=== PATIENT | female | born 1970 | race Caucasian/White ===

== ENCOUNTER 2017-09-07 18:30 | Emergency (ER) | payer OTHER ==
[~2017-09-07] VITALS: Ht 162.6 cm; Wt 115.7 kg
--- OUTSIDE RECORDS SUMMARY | 2017-09-07 18:36 | External Medical Summary Rpt | CCD ---
Author Author , JOESPH PINK Address Unknown Phone [email or web address] Purpose Continuity of Care Document - through 2016
--- OUTSIDE RECORDS SUMMARY | 2017-09-07 18:36 | External Medical Summary Rpt | CCD ---
Author Author , JOESPH PINK Address Unknown Phone [email or web address] Purpose Continuity of Care Document - through 2016
--- OUTSIDE RECORDS SUMMARY | 2017-09-07 18:36 | External Medical Summary Rpt | CCD ---
Author Author , JOESPH PINK Address Unknown Phone Purpose Continuity of Care Document - 04-17-2017 through 2016
--- OUTSIDE RECORDS SUMMARY | 2017-09-07 18:37 | External Medical Summary Rpt ---
Author Author [employer], [employer] [employer] Organization [employer] Address Unknown Phone Unavailable Results Comprehensive metabolic 2000 panel in Serum or Plasma Observa Value Referen Units Interpr Notes Date tion ce etation Range Albumin/G 1.1 - 1.8 No Low No April 17 lobulin informati informati 2016 7:57 [Mass on in on in AM ratio] in source source Serum or data data Plasma Albumin 3.4 - 5.0 gm/dL Normal No April 17 [Mass/vol informati 2016 7:57 ume] in on in AM Serum or source Plasma data Alkaline 46 - 116 U/L Normal No April 17 phosphata informati 2016 7:57 se on in AM [Enzymati source c data activity/ volume] in Serum or Plasma Bilirubin 0.2 - 1.0 mg/dL Normal No April 17 .total informati 2016 7:57 [Mass/vol on in AM ume] in source Serum or data Plasma Urea 7 - 18 mg/dL Normal No April 17 nitrogen informati 2016 7:57 [Mass/vol on in AM ume] in source Serum or data Plasma Calcium 8.5 - mg/dL Normal No April 17 [Mass/vol 10.1 informati 2016 7:57 ume] in on in AM Serum or source Plasma data Chloride 98 - 107 mmoL/L Normal No April 17 [Moles/vo informati 2016 7:57 lume] in on in AM Serum or source Plasma data Carbon 21.0 - mmoL/L Normal No April 17 dioxide, 32.0 informati 2016 7:57 total on in AM [Moles/vo source lume] in data Serum or Plasma Creatinin 0.55 - mg/dL Normal No April 17 e 1.02 informati 2016 7:57 [Mass/vol on in AM ume] in source Serum or data Plasma Estimated 59- ML/MIN No REFERENCE April 17 informati RANGE: 2017 7:57 glomerula on in >60 AM r source ML/MIN/1. filtratio data 73 SQUARE n rate METERSIf (GF this patient is -A merican, then multiply theresult by 1.210. Globulin 1.3 - 3.2 gm/dL High No April 17 [Mass/vol informati 2016 7:57 ume] in on in AM Serum source data Glucose 74 - 106 mg/dL Normal No April 17 [Mass/vol informati 2016 7:57 ume] in on in AM Serum or source Plasma data Potassium 3.5 - 5.1 mmoL/L Normal No April 17 informati 2016 7:57 [Moles/vo on in AM lume] in source Serum or data Plasma Sodium 136 - 145 mmoL/L Normal No April 17 [Moles/vo informati 2016 7:57 lume] in on in AM Serum or source Plasma data Aspartate 15 - 37 U/L Normal No April 17 informati 2016 7:57 aminotran on in AM sferase source [Enzymati data c activity/ volume] in Serum or Plasma Alanine 12 - 78 U/L Normal No April 17 aminotran informati 2016 7:57 sferase on in AM [Enzymati source c data activity/ volume] in Serum or Plasma Protein 6.4 - 8.2 gm/dL Normal No April 17 [Mass/vol informati 2016 7:57 ume] in on in AM Serum or source Plasma data Lipid 1996 panel in Serum or Plasma Observa Value Referen Units Interpr Notes Date tion ce etation Range Cholester < 200 mg/dL No No April 17 ol informati informati 2016 7:57 [Moles/vo on in on in AM lume] in source source Unspecifi data data ed specimen Cholester 40 - 60 MG/DL Normal No April 17 ol in HDL informati 2016 7:57 on in AM [Mass/vol source ume] in data Serum or Plasma Cholester 0 - 130 mg/dL Normal No April 17 ol in LDL informati 2016 7:57 on in AM [Mass/vol source ume] in data Serum or Plasma by daily on Triglycer 30 - 200 mg/dL Normal No April 17 madan informati 2016 7:57 [Moles/vo on in AM lume] in source Serum or data Plasma Cholester 0 - 40 No Normal No April 17 ol in informati informati 2016 7:57 VLDL on in on in AM [Mass/vol source source ume] in data data Serum or Plasma Thyrotropin [Units/volume] in Serum or Plasma Observa Value Referen Units Interpr Notes Date tion ce etation Range Thyrotrop 0.358 - uIU/ml Normal No April 17 in 3.740 informati 2016 7:57 [Units/vo on in AM lume] in source Serum or data Plasma CBC W Auto Differential panel in Blood Observa Value Referen Units Interpr Notes Date tion ce etation Range Basophils 0 - 0.2 K/MM3 Normal No April 17 informati 2016 7:57 [#/volume on in AM ] in source Blood by data Automated count Basophils 0.1 - 2.0 % Normal No April 17 / informati 2016 7:57 leukocyte on in AM s in source Blood by data Automated count Eosinophi 0.0 - 0.4 K/mm3 Normal No April 17 ls informati 2016 7:57 [#/volume on in AM ] in source Blood by data Automated count Eosinophi 0.1 - % Normal No April 17 ls/100 12.0 informati 2016 7:57 leukocyte on in AM s in source Blood by data Automated count Granulocy 1.8 - 7.8 K/mm3 Normal No April 17 ventura informati 2016 7:57 [#/volume on in AM ] in source Blood by data Automated count Granulocy 37.0 - % Normal No April 17 ventura/100 80.0 informati 2016 7:57 leukocyte on in AM s in source Blood by data Automated count Hematocri 37.0 - % Normal No April 17 t [Volume 47.0 informati 2016 7:57 on in AM Fraction] source of Blood data Hemoglobi 12.2 - g/dL Normal No April 17 n 16.2 informati 2016 7:57 [Mass/vol on in AM ume] in source Blood data Lymphocyt 0.7 - 4.5 K/mm3 Normal No April 17 es informati 2016 7:57 [#/volume on in AM ] in source Unspecifi data ed specimen by Automated count Lymphocyt 10 - 50.0 % Normal No April 17 es informati 2016 7:57 [#/volume on in AM ] in source Unspecifi data ed specimen by Automated count Erythrocy 27 - 31.2 pg Normal No April 17 te mean informati 2016 7:57 corpuscul on in AM ar source hemoglobi data n [Entitic mass] Erythrocy 31.8 - g/dl Normal No April 17 te mean 35.4 informati 2016 7:57 corpuscul on in AM ar source hemoglobi data n concentra tion [Mass/vol ume] by Automated count Erythrocy 82.2 - fl Normal No April 17 te mean 97.8 informati 2016 7:57 corpuscul on in AM ar volume source [Entitic data volume] by Automated count Monocytes 0.1 - 1.0 K/mm3 Normal No April 17 informati 2016 7:57 [#/volume on in AM ] in source Blood by data Automated count Monocytes 1.7 - 9.3 % Normal No April 17 / informati 2016 7:57 leukocyte on in AM s in source Blood by data Automated count Platelet 7.4 - fl Low No April 17 mean 10.4 informati 2016 7:57 volume on in AM [Entitic source volume] data in Blood by Automated count Platelets 142 - 424 K/mm3 Normal No April 17 informati 2016 7:57 [#/volume on in AM ] in source Blood data Erythrocy 4.2 - 5.4 M/mm3 Normal No April 17 ventura informati 2016 7:57 [#/volume on in AM ] in source Amniotic data fluid Erythrocy 11.5 - % Normal No April 17 te 17.5 informati 2016 7:57 distribut on in AM ion width source [Entitic data volume] by Automated count Leukocyte 4.8 - K/MM3 Normal No April 17 s 10.8 informati 2016 7:57 [#/volume on in AM ] in source Blood data
--- OUTSIDE RECORDS SUMMARY | 2017-09-07 18:37 | External Medical Summary Rpt | CCD ---
Demographics Preferred Language Tamazight Marital Status Unknown Anabaptist Affiliation Unknown Race Unknown Ethnic Group Unknown Author Author , JOESPH PINK Address Unknown Phone Immunization Unable to retrieve immunization data due to connection failure with Immunization Registry. Please try again later.
--- OUTSIDE RECORDS SUMMARY | 2017-09-07 18:37 | External Medical Summary Rpt ---
Author Author RONN[employer]TY [employer], [facility] [employer] Organization [employer] Address Unknown Phone Unavailable [...]
--- OUTSIDE RECORDS SUMMARY | 2017-09-07 18:37 | External Medical Summary Rpt | CCD ---
Demographics Preferred Language Kiswahili Marital Status Unknown Mormon Affiliation Unknown Race Unknown Ethnic Group Unknown Author Author , JOESPH PINK Address Unknown Phone Immunization Unable to retrieve immunization data due to connection failure with Immunization Registry. Please try again later.
--- NOTE | 2017-09-07 18:49 | Urgent Treatment Center Report ---
History of Present Issue Date/Time Seen by Provider 09/07/178 Visit Reason Pt arrived: Presenting Problem: Location if Accident: Onset of symptoms date/time:/ or onset unknown for: Have you (or family members/close friends) recently traveled outside the [place]? If Yes, where/when: Have you had exposure to infectious disease within the past month? TB? Other? Specify: Source patient, RN notes reviewed, family Exam Limitations no limitations Comment Patient has had intermittent recurring rash for several weeks. It was initially on her hands and arms, but would resolve spontaneously and then recur a day or two later. She thought this was initially related to an allergic response as she used to get allergy shots. The rash isn't itchy or painful. Starts as smaller scattered flat red spots and then turns into a more diffuse/confluent pinkish rash. Rash in now on her legs and started today on her face. States she got her flu shot 8-9 days ago. The next day she felt very tired and has felt tired for a few weeks. She had a sore throat but it is better. Has had fever for several days now. It also seems to come and go. Her muscles hurt. Her ear was popping and "had a heartbeat" this am but not painful. No sinus pain or pressure. Minimum cough. No vomiting or diarrhea. No new medications. No recent antibiotics. ALLERGIES Coded Allergies: No Known Allergies (09/07/17) History Medical History General Seizures? No Diabetes? No Hepatitis? No TB? No Surgical Hx Previous Surgery?Y D & C Review of Systems All Other Systems Reviewed and Negative Constitutional chills, fever, malaise ENT throat pain. Skin rash Physical Exam Vital Signs Vital Signs Date Time Temp Pulse Resp B/P Pulse O2 O2 Flow FiO2 Ox Delivery Rate 09/07 1849 99.9 113 22 143/95 97 General Appearance normal appearance, no apparent distress Ear, Nose, Throat hearing grossly normal, normal ENT inspection Respiratory Status No: respiratory distress, trachea midline, chest symmetrical. Lung Sounds bilateral: normal breath sounds, lungs clear. 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 No Results/Orders Laboratory Tests 09/07/171933: Heterophile Ab Titer Cancelled 09/07/171904: ESR Pending 09/07/171904: Sodium 138, Potassium 4.0, Chloride 104, Carbon Dioxide 24, BUN 10, Creatinine 0.9, Estimated Creat Clear 144, Estimated GFR (MDRD) 68, Glucose 113 H, Calcium 8.7, Total Bilirubin 0.5, AST 69 H, ALT 43, Alkaline Phosphatase 87, Total Protein 7.6, Albumin 3.4, Globulin 4.2 H, Albumin/Globulin Ratio 0.8 L, WBC 10.1, RBC 4.68, Hgb 13.0, Hct 39.2, MCV 83.6, RDW 13.9, Plt Count 190, MPV 8.1, Gran % 82.8 H, Gran # 8.4 H, Lymphocytes % 11.1, Monocytes % 4.4, Eosinophils % 1.3, Basophils % 0.4, Lymphocytes # 1.1, Monocytes # 0.4, Eosinophils # 0.1, Basophils # 0.0, PUBS MCHC 33.3, MCH 27.9, EBV DNA Quant copies/mL Pending, EBV DNA Quant PCR log10 Pending 09/07/171899: Influenza Type A Ag NOT DETECTED, Influenza Type B Ag NOT DETECTED, Group A Strep Screen NOT DETECTED Current Medication Orders Sig/Carrillo Start time Last Medication Dose Route Stop Time Status Admin Ceftriaxone Sodium 1 GM ONCE ONE 09/07 2030 DC 09/07 IM 09/07 Levofloxacin 500 MG ONCE ONE 09/07 2030 DC 09/07 PO 09/07 Lidocaine HCl 0 ONCE ONE 09/07 2030 DC 09/07 IM 09/07 Methylprednisolone 40 MG ONCE ONE 09/07 2030 DC 09/07 Acetate IM 09/07 Ceftriaxone Sodium 0 .STK-MED ONE 09/07 2028 DC .ROUTE Levofloxacin 0 .STK-MED ONE 09/07 2028 DC .ROUTE Lidocaine HCl 0 .STK-MED ONE 09/07 2028 DC .ROUTE Methylprednisolone 0 .STK-MED ONE 09/07 2028 DC Acetate IM Orders Procedure Date/time Status SED RATE 09/07 1948 Active C-REACTIVE PROTEIN 09/07 1948 Complete CHEST(2 VIEWS-NOT PORTABLE) 09/07 1947 Active EBV BY PCR, QUANTITATIVE 09/07 1905 Active UTC STREP SCREEN 09/07 1900 Complete UTC FLU A,B 09/07 1900 Complete CBC WITH AUTO DIFF 09/07 1900 Complete CHEM 12 PROFILE 09/07 1900 Complete Departure Departure Time of Disposition 2049 Disposition DC Home or Self Care(routine) Clinical Impression Primary Impression: Pneumonia Qualifiers: Pneumonia type: due to unspecified organism Laterality: right Lung location: middle lobe of lung Qualified Code: J18.1 - Lobar pneumonia, unspecified organism Secondary Impressions: Erythema multiforme Condition STABLE Referrals MELODIE MCKOY Patient Instructions DI for Erythema Multiforme, DI for Pneumonia -- Adult Additional Instructions Close f/u to ensure resolution Discharge Counseling Counseled pt/family regarding diagnosis, test results, medications/RX, home care, follow up needs Prescriptions Current Visit Scripts Levofloxacin (Levaquin 500MG) 500 MG PO DAILY #10 TAB Methylprednisolone (Methylpred Dose-Reynaldo) 4 MG PO UD #1 REYNALDO TAKE DIRECTED ON PACKAGING at 2053
[2017-09-07 19:15] LABS: LYMPH # 1.1 K/mm3 (0.7-4.5); LYMPH % 11.1 % (10-50.0)
[2017-09-07 19:18] LABS: UTC STREP SCREEN NOT DETECTED (NOTDETECTED)
[2017-09-07] MEDS ORDERED: LEVAQUIN500 MG PO (20:52)
[2017-09-07] MEDS ORDERED: METHYLPRED DP4 MG PO (20:52)
[2017-09-07 21:00] VITALS: BP 143/95
--- NOTE | 2017-09-08 05:35 | RADIOLOGY REPORT PS360 ---
CHEST(2 VIEWS-NOT PORTABLE) HISTORY: COUGH ORDERING PHYSICIAN: GEMMA RAMAN PATIENT AGE: 47 years COMPARISON: None available FINDINGS: The cardiomediastinal silhouette and pulmonary vascularity are within normal limits. The lungs are clear without infiltrates, suspicious nodules, or pleural effusions. No acute bony abnormalities. IMPRESSION: Negative chest, no acute finding
[2017-09-11 03:36] LABS: Epstein-Barr DNA Quant, PCR Negative (Negative)
== END 2017-09-07 21:00 | disposition home or self-care (01) ==
LOC: UTC 18:30
PROVIDERS: Emergency Medicine; Physician Assistant
DX: J18.1 Lobar pneumonia, unspecified organism (principal); R21 Rash and other nonspecific skin eruption
CPT/HCPCS: J1030

== ENCOUNTER → 2017-09-10 | Outpatient (CLI) | payer OTHER ==
[~2017-09-10] MED LIST: LEVAQUIN500 MG PO; METHYLPRED DP4 MG PO
[2017-09-12 08:46] LABS: RA Latex Turbid. 15.7 IU/mL (0.0-13.9); Thyroid Peroxidase (TPO) Ab 13 IU/mL (0-34); Vitamin D, 25-Hydroxy 16.5 ng/mL (30.0-100.0)
[2017-09-12 10:39] LABS: Anti-DNA (DS) Ab Qn 1 IU/mL (0-9)
[2017-09-12 14:39] LABS: Thyroglobulin Antibody <1.0 IU/mL (0.0-0.9)
[2017-09-12 18:41] LABS: Antinuclear Antibodies, IFA Positive (.)
[2017-09-13 03:37] LABS: PTT-LA 32.8 sec (0.0-51.9); dRVVT 57.1 sec (0.0-47.0)
[2017-09-13 08:39] LABS: Lupus Reflex Interpretation Comment: (.); dRVVT Mix 46.8 sec (0.0-47.0)
[2017-09-14 03:37] LABS: CCP Antibodies IgG/IgA 11 units (0-19)
== END ==
LOC: LAB 15:37
PROVIDERS: Physician Assistant
DX: R70.0 Elevated erythrocyte sedimentation rate (principal); E55.9 Vitamin D deficiency, unspecified